=== PATIENT | male | born 2000 | race Caucasian/White ===

== ENCOUNTER 2021-03-28 15:27 | Emergency (ER) | payer MEDICAID ==
[~2021-03-28] VITALS: Ht 170.2 cm; Wt 84.0 kg
[2021-03-28 16:16] VITALS: BP 140/82
[2021-03-28] MEDS ORDERED: MAGNESIUM/ALUMINUM HYDROXIDE/SIMETHICONE 30ML UDC PO STA (17:37)
== END 2021-03-28 19:00 | disposition left against medical advice (07) ==
LOC: ER 15:27
DX: R07.89 Other chest pain (principal); Z53.21 Procedure and treatment not carried out due to patient leaving prior to being seen by health care provider
CPT/HCPCS: 93005